=== PATIENT | female | born 1990 | race African-American/Black ===

== ENCOUNTER 2017-06-05 21:11 | Inpatient (IN) | payer MEDICARE ==
[~2017-06-05] VITALS: Ht 170.2 cm; Wt 73.9 kg
[~2017-06-05 21:11] MED LIST: ASCORBIC ACID; CLONAZEPAM1 MG PO; NORCO 5-325 TA1 EACH PO; iron; vitamin D
--- OUTSIDE RECORDS SUMMARY | 2017-06-05 21:14 | XMS REPORT ---
[facility] Address Unknown Phone Unavailable Care Team Providers Care Dial Marker Name Role Phone PAOLA CELESTIN Unavailable Unavailable Problems This patient has no known problems. Allergies, Adverse Reactions, Alerts This patient has no known allergies or adverse reactions. Medications This patient has no known medications. Encounters Start Date/Time End Date/Time Encounter Type Admission Type Attending [facility] Care Facility Care Department Encounter ID 2017-07-19 00:00:00 2017-07-19 00:00:00 Outpatient [facility] [id number] 2017-05-03 11:40:59 2017-05-03 11:40:59 Outpatient [facility] [id number] 2017-05-03 00:00:00 2017-05-03 00:00:00 Outpatient [facility] [id number] 2017-04-20 12:41:51 2017-04-20 12:41:51 Outpatient [facility] [id number] 2017-04-15 08:18:27 2017-04-15 08:18:27 Outpatient [facility] [id number] 2017-03-25 12:46:32 2017-03-25 12:46:32 Outpatient [facility] [id number] 2017-03-04 00:00:00 2017-03-04 00:00:00 Outpatient [facility] [id number] 2017-02-22 12:59:27 2017-02-22 12:59:27 Outpatient [facility] [id number] 2017-02-08 00:00:00 2017-02-08 00:00:00 Outpatient [facility] [id number] 2017-01-25 00:00:00 2017-01-25 00:00:00 Outpatient [facility] [id number] 2017-01-08 00:00:00 2017-01-08 00:00:00 Outpatient [facility] [id number] 2016-12-28 10:18:47 2016-12-28 10:18:47 Outpatient [facility] [id number] 2016-12-01 00:00:00 2016-12-01 00:00:00 Outpatient [facility] [id number] 2016-11-27 00:00:00 2016-11-27 00:00:00 Outpatient [facility] [id number] 2016-10-23 00:00:00 2016-10-23 00:00:00 Outpatient [facility] [id number] 2016-09-15 11:19:30 2016-09-15 11:19:30 Outpatient [facility] [id number] 2016-08-14 11:34:01 2016-08-14 11:34:01 Outpatient [facility] [id number] Results Test Description Test Time Test Comments Text Results Atomic Results Result Comments CHEST 2 VIEWS [place] [address] Patient Name: ALEXX CARRIZALES MR #: [id number] : 1990 Age/Sex: 26/F Req #: [id number] Adm Physician: Ordered by: PAOLA CELESTIN MD Report #: [id number] Location: ER Room/Bed: Procedure: [id number] DX/CHEST 2 VIEWS Exam Date: Exam Time: REPORT STATUS: Signed CHEST 2 VIEWS, Technique: CHEST 2 VIEWS Comparison: None Clinical history: S SLE ACHY ALL OVER, lupus DISCUSSION: Slightly enlarged cardiac silhouette. No consolidation or edema. No pleural effusion or pneumothorax. IMPRESSION: Slightly enlarged cardiac silhouette. Otherwise negative Signed by: Dr Lj Hanson MD on 01/21/2017 12:38 AM Dictated By: LJ HANSON MD Transcribed By: KATHY on 01/21/1737 COPY TO: PAOAL CELESTIN MD CT BRAIN WO [facility] [place] [address] Patient Name: ALEXX CARRIZALES MR #: [id number] : 1990 Age/Sex: 26/F Req #: [id number] Adm Physician: Ordered by: PAOLA CELESTIN MD Report #: [id number] Location: ER Room/Bed: Procedure: [id number] CT/CT BRAIN WO Exam Date: Exam Time: REPORT STATUS: Signed History: Lupus, migraine, fever. Comparison studies: None Technique: Axial images were obtained from the skull base to the vertex. Coronal and sagittal reconstructions obtained from the axial data. Findings: Scalp/skull: No abnormalities. No fractures, blastic or lytic lesions. Extra-axial spaces: No masses. No fluid collections. Brain sulci: Appropriate for age. Ventricles: Normal in size and configuration. No hydrocephalus. Parenchyma: No abnormal densities. No masses, hemorrhage, acute or chronic cortical vascular insults. Sellar/suprasellar region: No abnormalities Craniocervical junction: Patent foramen magnum. No Chiari one malformation. IMPRESSION: No abnormalities . Signed by: DR Brad Stevenson M.D. on 2016 12:16 AM Dictated By: BRAD SINGLETON MD Transcribed By: KATHY on 01/21/1715 COPY TO: PAOLA CELESTIN MD
[2017-06-05] MEDS ORDERED: ACETAMINOPHEN 325 MG TAB ONE (21:48)
[2017-06-05 22:53] LABS: EOSINOPHILS # (AUTO) 0.1 (0.0-0.4); EOSINOPHILS % 3.5 % (0.0-6.0); HEMATOCRIT 29.1 % (34.2-44.1); HEMOGLOBIN 9.7 g/dL (12.0-16.0); LYMPHOCYTES # (AUTO) 0.9 (1.0-3.2); LYMPHOCYTES % 24.9 % (18.0-39.1); MEAN CORPUSCULAR HEMOGLOBIN 30.6 pg (28-32); MEAN CORPUSCULAR HGB CONC 33.3 g/dL (31-35); MEAN CORPUSCULAR VOLUME 91.8 fL (81-99); MONOCYTES # (AUTO) 0.2 (0.2-0.8); MONOCYTES % 6.1 % (4.4-11.3); NEUTROPHILS # (AUTO) 2.2 (2.1-6.9); NEUTROPHILS % 65.2 % (38.7-80.0); PLATELET COUNT 270 x10e3/uL (140-360); RED BLOOD COUNT 3.17 x10e6/uL (3.6-5.1); RED CELL DISTRIBUTION WIDTH 10.8 % (11.7-14.4)
[2017-06-05 23:01] LABS: BILIRUBIN,URINE NEGATIVE (NEGATIVE); CLARITY,URINE CLEAR (CLEAR); COLOR,URINE YELLOW (YELLOW); KETONES,URINE NEGATIVE (NEGATIVE); LEUKOCYTE ESTERASE ,URINE TRACE (NEGATIVE); NITRITE,URINE NEGATIVE (NEGATIVE); PROTEIN,URINE DIPSTICK NEGATIVE (NEGATIVE); URINE UROBILINOGEN 0.2 mg/dL (0.2 - 1)
[2017-06-05 23:03] LABS: STREPTOCOCCUS GRP A ANTIGEN NEGATIVE (NEGATIVE)
[2017-06-05 23:11] LABS: INFLUENZAE A&B ANTIGEN (RAPID) NEGATIVE (NEGATIVE)
[2017-06-05 23:14] LABS: ALANINE AMINOTRANSFERASE 85 IU/L (0-55); ALBUMIN 3.2 g/dL (3.5-5.0); ALBUMIN/GLOBULIN RATIO 0.5 (0.8-2.0); ALKALINE PHOSPHATASE 162 IU/L (40-150); ANION GAP 11.8 mmol/L (8-16); BLOOD UREA NITROGEN 13 mg/dL (7-26); BUN/CREATININE RATIO 15 (6-25); CALCIUM 9.2 mg/dL (8.4-10.2); CARBON DIOXIDE 26 mmol/L (22-29); CHLORIDE 97 mmol/L (98-107); CREATINE KINASE 107 IU/L (29-168); CREATININE, SERUM 0.85 mg/dL (0.57-1.11); EST GLOMERULAR FILTRATION RATE > 60 ML/MIN (60-); GLUCOSE 91 mg/dL (74-118); POTASSIUM 3.8 mmol/L (3.5-5.1); SODIUM 131 mmol/L (136-145)
--- NOTE | 2017-06-05 23:14 | Diagnostic Imaging Report ---
CHEST SINGLE (PORTABLE), 06/05/2017 9:32 PM Technique: CHEST SINGLE (PORTABLE) Comparison: 01/20/2017 Clinical history: Chest pain Findings: See Impression Impression: 1. Moderately enlarged cardiac silhouette. Apparent interval enlargement from prior may be related to cardiomegaly, pericardial effusion or portable AP technique. Consider follow-up upright PA and lateral. 2. Central vascular congestion. Small left effusion and associated atelectasis. Signed by: Dr Danuta Hanson MD on 06/05/2017 11:11 PM
[2017-06-05 23:17] LABS: BACTERIA,URINE RARE /HPF; EPITHELIAL CELLS,URINE FEW /LPF; RBC,URINE 0-5 /HPF (0-5); WBC,URINE (MAN) 0-5 /HPF (0-5)
--- NOTE | 2017-06-06 02:30 | Diagnostic Imaging Report ---
EXAM: CT CHEST W DATE: 06/05/2017 11:52 PM INDICATION: Chest pain, shortness of breath, history of lupus COMPARISON: None TECHNIQUE: Multidetector CT scanning of the chest was performed. Coronal and sagittal multiplanar reformations were obtained. IV Contrast: 100 ml Isovue 370/300 FINDINGS: LUNGS AND PLEURA: Small left pleural effusion. Mild linear left basilar and right middle lobe opacity, favor atelectasis. HEART, MEDIASTINUM, VESSELS: Mild cardiomegaly with moderate pericardial effusion. The fluid measures greater than that of simple fluid, which may be artifactually increased related to streak from contrast in the heart. No evidence of acute pulmonary artery embolism. Multiple prominent mediastinal nodes for example 0.7 cm short axis in the anterior mediastinum and 0.9 cm in the subcarinal region. These are presumably reactive. UPPER ABDOMEN: Unremarkable. MUSCULOSKELETAL: No acute findings. IMPRESSION: 1. Cardiomegaly with moderate pericardial effusion, which can be seen with lupus/pericarditis. 2. Small left pleural effusion with atelectasis. 3. No acute pulmonary embolism. Signed by: Dr Danuta Hanson MD on 06/06/2017 2:26 AM
[2017-06-06] MEDS ORDERED: MORPHINE SULFATE 2 MG/ML SYR IV PRN (03:15)
[2017-06-06] MEDS ORDERED: ONDANSETRON HCL INJ 2 MG/ML VIAL IV PRN (03:15)
[2017-06-06] MEDS ORDERED: SODIUM CHLORIDE FLUSH 10 ML SYR INJ PRN (03:15)
[2017-06-06] MEDS ORDERED: ASPIRIN 81 MG CHEW TAB PO ONE (03:15)
[2017-06-06] MEDS ORDERED: SODIUM CHLORIDE 0.9% 50ML 50 ML ONE (04:07)
[2017-06-06] MEDS ORDERED: IOPAMIDOL 370 MG/ML 200 ML INFUS..BTL INJ ONE (04:07)
[2017-06-06] MEDS: ASPIRIN 81 MG ENTERIC COATED PO SCH (09:46)
[2017-06-06] MEDS ORDERED: ACETAMINOPHEN 325 MG TAB PO PRN (11:30)
[2017-06-06] MEDS ORDERED: CYMBALTA30 MG PO (12:00)
[2017-06-06] MEDS ORDERED: PLAQUENIL200 MG PO (12:00)
[2017-06-06] MEDS: SODIUM CHLORIDE 0.9% 1000ML 1,000 ML IV SCH ×2 (12:03→23:55)
[2017-06-06] MEDS ORDERED: HYDROCODONE/APAP 5MG-325MG TAB PO PRN (13:00)
[2017-06-06] MEDS ORDERED: MECLIZINE HCL 12.5 MG TAB PO SCH (13:15)
--- NOTE | 2017-06-06 14:30 | Diagnostic Imaging Report ---
Exam: Head CT without contrast History: Dizziness Comparison studies: Head CT 01/20/2017 Technique: Axial images were obtained from the skull base to the vertex. Coronal and sagittal images reconstructed from the axial data. Intravenous contrast: None Findings: Scalp: No abnormalities. Bones: No fractures, blastic or lytic lesions. Brain sulci: Appropriate for age. Ventricles: Normal in size and configuration. No hydrocephalus. Extra-axial spaces: No masses, no fluid collection. Parenchyma: No abnormal densities. No masses, acute hemorrhage, acute or chronic vascular insults. Sellar/suprasellar region: Partially CSF filled sella, a nonspecific finding which may be of no clinical significance in the absence of symptoms to suggest idiopathic intracranial hypertension or abnormalities referrable to the hypothalamic-pituitary axis. Craniocervical junction: Patent foramen magnum. No Chiari one malformation. IMPRESSION: 1. No acute abnormalities. 2. Incidental partially CSF filled sella, a nonspecific finding as described. 3. No changes from the previous head CT of 01/20/2017. Signed by: Dr. Michael Harrison M.D. on 06/06/2017 2:21 PM
[2017-06-06 14:44] LABS: CREATINE KINASE MB 0.6 ng/mL (0-5.0)
[2017-06-06 16:24] VITALS: BP 110/72
[2017-06-06 16:39] VITALS: BP 110/72
[2017-06-06 16:49] VITALS: BP 110/72
[2017-06-06] MEDS: HYDROXYCHLOROQUINE SULFATE 200 MG TAB PO SCH (17:47)
[2017-06-06] MEDS: CLONAZEPAM 1 MG TAB PO SCH (17:47)
[2017-06-06 20:00] VITALS: BP 106/76
[2017-06-06] MEDS ORDERED: METHYLPREDNISOLONE SOD SUCC 40 MG/ML VIAL IV SCH (21:00)
[2017-06-06 23:16] LABS: CREATINE KINASE 62 IU/L (29-168)
[2017-06-07] VITALS (10 sets, daily range): BP systolic 100–122; BP diastolic 56–76
--- NOTE | 2017-06-07 01:27 | Consultation ---
DATE OF CONSULTATION: PULMONARY CONSULTATION REASON FOR CONSULTATION: Pleuritic chest pain. HPI: Ms. Quintana is a 26-year-old female, who presented with pleuritic chest pain to the emergency room. Patient has history of SLE and she is on Plaquenil as an outpatient. The symptoms started few days ago and progressively getting worse. In the emergency room, patient underwent a CT of the chest to rule out PE. I have reviewed the images, not showing any evidence of pulmonary embolism; however, the pleura is thickened on the left side, unlikely that there is effusion. However, it is reported it is very small. She has small pericardial effusion as well. She has inflammation. Her lupus presentation is inflammation of small joints. She denies any nausea or vomiting, diarrhea, focal weakness. REVIEW OF SYSTEMS GENERAL: Denies any fever or chills. HEENT: Denies any head trauma. ENT, denies any earache nosebleed, throat pain. CVS: Patient has pleuritic chest pain. RESPIRATORY: Patient has a mild difficulty breathing when she takes deep breath. GI: Denies any nausea vomiting. REST OF THE REVIEW SYSTEMS: Negative except as in HPI. PAST MEDICAL HISTORY: SLE. PAST SURGICAL HISTORY: Surgery for adenitis. FAMILY HISTORY AND SOCIAL HISTORY: She does not smoke. Occasionally drinks. Works as a home school teacher. She has 2 children, lives with her children. PHYSICAL EXAM VITALS: Temperature 97.9, pulse of 106, blood pressure 110/72, respiratory rate of 18, O2 sat 100% on room air. SKIN: Warm and dry. GENERAL APPEARANCE: She is a young female, not in any obvious distress. She is awake and alert. Following commands. Responds to question appropriately. HEENT: Head atraumatic, normocephalic. Pupils reactive. NECK: Supple. CHEST: Poor respiratory effort because of pleuritic chest pain. Otherwise, clear to auscultation bilaterally. HEART: S1/S2 audible. ABDOMEN: Soft, nontender, nondistended. EXTREMITIES: No clubbing, cyanosis or edema. NEUROLOGIC: Awake and alert. Following command and no focal neurologic deficit. LABS: White count of 3.2, hemoglobin 9.7, platelets 270,000. Chemistry, sodium 135, potassium 3.8, chloride 97, BUN 13, creatinine 0.85. AST/ALT slightly elevated to [address] 85[address] Cardiac enzymes negative. CT of the chest, I reviewed the films, mild thickening of the pleura on the left side and very small pleural effusion on the left side. She has pericardial effusion. No pulmonary embolism. ASSESSMENT AND PLAN: Ms. Quintana is a 26-year-old female, who has systemic lupus erythematosus, currently presented with pleuritic chest pain, has small pericardial effusion and possible small pleural effusion. Findings suggestive of ascites, which can be part of systemic lupus erythematosus. PLAN 1. I will send off ESR and CRP. 2. Start the patient on low-dose steroids. 3. Oxygen as needed. Job#: [id number] CQ
[2017-06-07 07:14] LABS: BASOPHILS % 0.2 % (0.0-1.0); EOSINOPHILS % 0.2 % (0.0-6.0); HEMATOCRIT 30.1 % (34.2-44.1); HEMOGLOBIN 10.1 g/dL (12.0-16.0); LYMPHOCYTES # (AUTO) 0.6 (1.0-3.2); LYMPHOCYTES % 13.8 % (18.0-39.1); MEAN CORPUSCULAR HEMOGLOBIN 31.1 pg (28-32); MEAN CORPUSCULAR HGB CONC 33.6 g/dL (31-35); MEAN CORPUSCULAR VOLUME 92.6 fL (81-99); MONOCYTES # (AUTO) 0.1 (0.2-0.8); MONOCYTES % 2.4 % (4.4-11.3); NEUTROPHILS # (AUTO) 3.8 (2.1-6.9); PLATELET COUNT 274 x10e3/uL (140-360); RED BLOOD COUNT 3.25 x10e6/uL (3.6-5.1); RED CELL DISTRIBUTION WIDTH 10.9 % (11.7-14.4)
[2017-06-07 07:30] LABS: CHOL/HDL RATIO 3.7 (3.0-3.6)
[2017-06-07 07:39] LABS: ALANINE AMINOTRANSFERASE 77 IU/L (0-55); ALBUMIN/GLOBULIN RATIO 0.5 (0.8-2.0); ALKALINE PHOSPHATASE 154 IU/L (40-150); ANION GAP 11.1 mmol/L (8-16); BLOOD UREA NITROGEN 9 mg/dL (7-26); BUN/CREATININE RATIO 11 (6-25); CALCIUM 9.3 mg/dL (8.4-10.2); CARBON DIOXIDE 24 mmol/L (22-29); CHLORIDE 101 mmol/L (98-107); EST GLOMERULAR FILTRATION RATE > 60 ML/MIN (60-); GLUCOSE 172 mg/dL (74-118); POTASSIUM 4.1 mmol/L (3.5-5.1); SODIUM 132 mmol/L (136-145)
[2017-06-07 07:40] LABS: % IRON SATURATION 7 % (15-50); IRON 18 ug/dL (50-170); TOTAL IRON BINDING CAPACITY 260 ug/dL (261-478); TRANSFERRIN 186 mg/dL (180-382)
[2017-06-07] MEDS: DULOXETINE HCL 30 MG DELAYED RELEASE PO SCH (09:00)
[2017-06-07] MEDS: ASPIRIN 81 MG ENTERIC COATED PO SCH (09:44)
[2017-06-07] MEDS: METHYLPREDNISOLONE SOD SUCC 40 MG/ML VIAL IV SCH ×2 (09:44→17:38)
[2017-06-07] MEDS: CLONAZEPAM 1 MG TAB PO SCH ×2 (09:44→17:38)
[2017-06-07] MEDS: HYDROXYCHLOROQUINE SULFATE 200 MG TAB PO SCH ×2 (09:44→17:38)
[2017-06-07] MEDS: SODIUM CHLORIDE 0.9% 1000ML 1,000 ML IV SCH ×2 (10:58→21:22)
[2017-06-08] VITALS: BP 113/63
[2017-06-08] MEDS: METHYLPREDNISOLONE SOD SUCC 40 MG/ML VIAL IV SCH ×3 (00:32→17:50)
[2017-06-08 04:00] VITALS: BP 113/62
[2017-06-08 07:59] VITALS: BP 119/68
[2017-06-08 08:09] VITALS: BP 119/68
[2017-06-08] MEDS: DULOXETINE HCL 30 MG DELAYED RELEASE PO SCH (09:00)
[2017-06-08] MEDS: CLONAZEPAM 1 MG TAB PO SCH ×2 (09:45→17:50)
[2017-06-08] MEDS: HYDROXYCHLOROQUINE SULFATE 200 MG TAB PO SCH ×2 (09:45→17:50)
[2017-06-08] MEDS: ASPIRIN 81 MG ENTERIC COATED PO SCH (09:45)
[2017-06-08] MEDS: SODIUM CHLORIDE 0.9% 1000ML 1,000 ML IV SCH ×3 (10:59→23:45)
[2017-06-08 15:57] VITALS: BP 127/74
[2017-06-08 20:00] VITALS: BP 114/88
[2017-06-09 05:48] VITALS: BP 102/60
[2017-06-09 07:59] VITALS: BP 108/67
[2017-06-09 08:40] VITALS: BP 108/67
[2017-06-09] MEDS: METHYLPREDNISOLONE SOD SUCC 40 MG/ML VIAL IV SCH (08:43)
[2017-06-09] MEDS: CLONAZEPAM 1 MG TAB PO SCH (08:43)
[2017-06-09] MEDS: DULOXETINE HCL 30 MG DELAYED RELEASE PO SCH (08:43)
[2017-06-09] MEDS: ASPIRIN 81 MG ENTERIC COATED PO SCH (08:43)
[2017-06-09] MEDS: HYDROXYCHLOROQUINE SULFATE 200 MG TAB PO SCH (08:43)
[2017-06-09 12:10] VITALS: BP 107/67
[2017-06-09 14:54] LABS: BASOPHILS % 0.2 % (0.0-1.0); HEMATOCRIT 34.7 % (34.2-44.1); HEMOGLOBIN 11.7 g/dL (12.0-16.0); LYMPHOCYTES # (AUTO) 0.9 (1.0-3.2); MEAN CORPUSCULAR HEMOGLOBIN 30.8 pg (28-32); MEAN CORPUSCULAR HGB CONC 33.7 g/dL (31-35); MEAN CORPUSCULAR VOLUME 91.3 fL (81-99); MONOCYTES # (AUTO) 0.3 (0.2-0.8); MONOCYTES % 3.1 % (4.4-11.3); NEUTROPHILS # (AUTO) 8.3 (2.1-6.9); NEUTROPHILS % 87.2 % (38.7-80.0); PLATELET COUNT 359 x10e3/uL (140-360)
[2017-06-09 15:05] LABS: ANION GAP 12.2 mmol/L (8-16); BLOOD UREA NITROGEN 14 mg/dL (7-26); BUN/CREATININE RATIO 18 (6-25); CALCIUM 9.4 mg/dL (8.4-10.2); CARBON DIOXIDE 26 mmol/L (22-29); CHLORIDE 98 mmol/L (98-107); CREATININE, SERUM 0.79 mg/dL (0.57-1.11); EST GLOMERULAR FILTRATION RATE > 60 ML/MIN (60-); GLUCOSE 112 mg/dL (74-118); POTASSIUM 4.2 mmol/L (3.5-5.1); SODIUM 132 mmol/L (136-145)
[2017-06-09] MEDS ORDERED: PREDNISONE20 MG PO (15:20)
== END 2017-06-09 15:48 | disposition home or self-care (01) | DRG 545 ==
LOC: ER 21:11 → ERHOLD 06-06 03:14 → MED/SURG3 06-06 15:19 → OBSVTOIN 06-07 10:49
PROVIDERS: ADMIT Internal Medicine; ATTEND Internal Medicine
DX: M32.12 Pericarditis in systemic lupus erythematosus (principal); K65.8 Other peritonitis; F41.9 Anxiety disorder, unspecified; R00.0 Tachycardia, unspecified; Z28.82 Immunization not carried out because of caregiver refusal; Z79.899 Other long term (current) drug therapy
CPT/HCPCS: 36415; 70450; 71045; 71260; 80048; 80053; 80061; 81001; 81025; 82550; 82553; 83518; 83540; 84466; 84484; 85025; 85379; 85651; 86140; 87070; 87400; 93005; 93306; 96376; 99284; G0378; J2920; J7030; Q9967

== ENCOUNTER 2017-08-14 17:56 | Emergency (ER) | payer MEDICARE ==
[~2017-08-14] VITALS: Ht 170.2 cm; Wt 73.9 kg
[~2017-08-14 17:56] MED LIST changes: +CYMBALTA30 MG PO; +PLAQUENIL200 MG PO; +PREDNISONE20 MG PO
--- OUTSIDE RECORDS SUMMARY | 2017-08-14 17:59 | XMS REPORT | Continuity of Care Document ---
Author Author [facility] Address [address] [place] [address] Phone Unavailable Care Team Providers Care Assistant Manager Airside Operations Name Role Phone FILIBERTO PUGH MD PCP Insurance Providers Guarantor Alexx Carrizales Address [address] [facility] [address] [place] [address] Email [email or web address] Payer [facility] Policy Number [id number] Subscriber's Name Alexx Carrizales Relationship 18 Self / Same As Patient Effective Date 14 Payer Medicare A & B Policy Number [id number] Subscriber's Name Alexx Carrizales Relationship 18 Self / Same As Patient Effective Date 13 Advance Directives Directive Response Recorded Date/Time Does the patient have an advance directive? No 06/06/17 4:27pm If yes, is advance directive on file with [facility]? No 06/06/17 4:27pm If not on file with [facility] will patient provide a copy? No 06/06/17 4:27pm Do you have a Directive to Physician? No 06/05/17 9:07pm Do you have a Medical Power of Historical Records Administrator? No 06/05/17 9:07pm Do you have an out of hospital Do Not Resuscitate Order? No 06/05/17 9:07pm Do you have any special needs we should be aware of? No 06/05/17 9:07pm Do you have a support person here with you today? No 06/05/17 9:07pm Did patient receive Notice of Privacy Practices? Yes 06/05/17 9:07pm Did patient receive patient rights and responsibilities? Yes 06/05/17 9:07pm Problems Medical Problem Onset Date Status Abscess Unknown Acute Chest pain Unknown Pancytopenia 07/01/2015 Acute Pericardial effusion Unknown Thrombocythemia 07/01/2015 Acute Medications Current Home Medications Medication Dose Units Route Directions Days Qty Instructions Start Date Clonazepam 1 Mg Tablet 1 Mg Oral Twice A Day for Anxiety Duloxetine Hcl (Cymbalta) 30 Mg Capsule.dr 30 Mg Oral Daily 30 Hydrocodone Bit/Acetaminophen ([place] 5-325 Tablet) 1 Each Tablet 1 Each Oral Twice A Day as needed for Pain Hydroxychloroquine Sulfate (Plaquenil) 200 Mg Tab 200 Mg Oral Twice A Day 30 Tab Prednisone 20 Mg Tab 40 Mg Oral Daily 5 Days Social History Social History Problem Response Recorded Date/Time Onset Date Status Hx Psychiatric Problems Yes 06/06/2017 4:27pm Not Applicable Not Applicable Hx Eating Disorder No 06/06/2017 4:27pm Not Applicable Not Applicable Hx Substance Use Disorder No 06/06/2017 4:27pm Not Applicable Not Applicable Hx Depression Yes 06/06/2017 4:27pm Not Applicable Not Applicable Hx Alcohol Use No 06/06/2017 4:27pm Not Applicable Not Applicable Hx Substance Use Treatment No 06/06/2017 4:27pm Not Applicable Not Applicable Hx Physical Abuse No 06/06/2017 4:27pm Not Applicable Not Applicable Smoking Status Start Date Stop Date Never Smoker Hospital Discharge Instructions No hospital discharge instruction information available. Plan of Care Discharge Date 06/09/17 3:48pm Disposition HOME, SELF-CARE Instructions/Education Provided Systemic Lupus Erythematosus Prescriptions See Medication Section Additional Instructions/Education Regular diet Activities as tolerated Follow up with PCP in one week Functional Status Query Response Date Recorded Assistive Devices None June 06, 2017 4:39pm Ambulation Ability Independent June 06, 2017 4:39pm Toileting Ability Independent June 08, 2017 6:47pm Allergies, Adverse Reactions, Alerts Allergen Type Severity Reaction Status Last Updated Amoxicillin Allergy Unknown Active 06/04/16 Immunizations No immunization information available. Vital Signs Acute Vital Signs Vital Response Date/Time Temperature (Fahrenheit) 97.1 degrees F (97.6 - 99.5) 06/09/2017 12:10pm Pulse Pulse Rate (adult) 108 bpm (60 - 90) 06/09/2017 12:10pm Respiratory Rate 20 bpm (12 - 24) 06/09/2017 12:10pm Blood Pressure 107/67 mm Hg 06/09/2017 12:10pm Height 5 ft 7 in 06/05/2017 9:33pm Weight 163 lb 06/05/2017 9:33pm Body Mass Index 25.5 kg/m^2 06/07/2017 1:00am Results Laboratory Results Test Name Result Units Flags Reference Collection Date/Time Result Date/ Time Comments Prothrombin Time 14.2 seconds 11.9-14.5 01/20/2017 10:35pm 01/20/2017 10:58pm Prothromb Time International Ratio 1.05 01/20/2017 10:35pm 2016 10:58pm Oral Anticoagulant Therapy INR Values: 1. Low Intensity Therapy 1.5 - 2.0 2. Moderate Intensity Therapy 2.0 - 3.0 3. High Intensity Therapy(1) 2.5 - 3.5 4. High Intensity Therapy(2) 3.0 - 4.0 5. Panic Value INR > 5.0 Activated Partial Thromboplast Time 27.3 seconds 23.8-35.5 01/20/2017 10 :35pm 01/20/2017 10:58pm Magnesium Level 2.3 MG/DL H 1.3-2.1 01/20/2017 10:35pm 01/20/2017 11: 05pm White Blood Count 9.49 x10e3/uL # 4.8-10.8 06/09/2017 2:45pm 06/09/2017 2 :59pm Red Blood Count 3.80 x10e6/uL 3.6-5.1 06/09/2017 2:45pm 06/09/2017 2: 59pm Hemoglobin 11.7 g/dL L 12.0-16.0 06/09/2017 2:45pm 06/09/2017 2:59pm Hematocrit 34.7 % 34.2-44.1 06/09/2017 2:45pm 06/09/2017 2:59pm Mean Corpuscular Volume 91.3 fL 81-99 06/09/2017 2:45pm 06/09/2017 2: 59pm Mean Corpuscular Hemoglobin 30.8 pg 28-32 06/09/2017 2:45pm 06/09/2017 2:59pm Mean Corpuscular Hemoglobin Concent 33.7 g/dL 31-35 06/09/2017 2:45pm 06/09/2017 2:59pm Red Cell Distribution Width 11.0 % L 11.7-14.4 06/09/2017 2:45pm 2017 2:59pm Platelet Count 359 x10e3/uL 140-360 06/09/2017 2:45pm 06/09/2017 2: 59pm Neutrophils (%) (Auto) 87.2 % H 38.7-80.0 06/09/2017 2:45pm 06/09/2017 2 :59pm Lymphocytes (%) (Auto) 9.0 % L 18.0-39.1 06/09/2017 2:45pm 06/09/2017 2: 59pm Monocytes (%) (Auto) 3.1 % L 4.4-11.3 06/09/2017 2:45pm 06/09/2017 2: 59pm Eosinophils (%) (Auto) 0.0 % 0.0-6.0 06/09/2017 2:45pm 06/09/2017 2: 59pm Basophils (%) (Auto) 0.2 % 0.0-1.0 06/09/2017 2:45pm 06/09/2017 2:59pm IM GRANULOCYTES % 0.5 % 0.0-1.0 06/09/2017 2:45pm 06/09/2017 2:59pm Neutrophils # (Auto) 8.3 H 2.1-6.9 06/09/2017 2:45pm 06/09/2017 2: 59pm Lymphocytes # (Auto) 0.9 L 1.0-3.2 06/09/2017 2:45pm 06/09/2017 2: 59pm Monocytes # (Auto) 0.3 0.2-0.8 06/09/2017 2:45pm 06/09/2017 2:59pm Eosinophils # (Auto) 0.0 0.0-0.4 06/09/2017 2:45pm 06/09/2017 2:59pm Basophils # (Auto) 0.0 0.0-0.1 06/09/2017 2:45pm 06/09/2017 2:59pm Absolute Immature Granulocyte (auto 0.05 x10e3/uL 0-0.1 06/09/2017 2: 45pm 06/09/2017 2:59pm Erythrocyte Sedimentation Rate 115 mm/hr H 0-20 06/06/2017 10:50pm 06/07 12:13am D-Dimer Quantitative (PE/DVT) > 5000 ng/mL H 0-400 06/05/2017 9:45pm 11:49pm As with all in vitro diagnostic tests, the test results should be interpreted by the physician in conjunction with clinical findings and other test results. Test results are reported in NEW D-dimer units(ug/mLFEU). Urine Color YELLOW YELLOW 06/05/2017 10:45pm 06/05/2017 11:03pm Urine Clarity CLEAR CLEAR 06/05/2017 10:45pm 06/05/2017 11:03pm Urine Specific [place] 1.015 1.010-1.025 06/05/2017 10:45pm 2017 11:03pm Urine pH 6.5 5 - 7 06/05/2017 10:45pm 06/05/2017 11:03pm Urine Leukocyte Esterase TRACE H NEGATIVE 06/05/2017 10:45pm 2017 11:03pm Urine Nitrite NEGATIVE NEGATIVE 06/05/2017 10:45pm 06/05/2017 11: 03pm Urine Protein NEGATIVE NEGATIVE 06/05/2017 10:45pm 06/05/2017 11: 03pm Urine Glucose (UA) NEGATIVE NEGATIVE 06/05/2017 10:45pm 06/05/2017 11 :03pm Urine Ketones NEGATIVE NEGATIVE 06/05/2017 10:45pm 06/05/2017 11: 03pm Urine Urobilinogen 0.2 mg/dL 0.2 - 1 06/05/2017 10:45pm 06/05/2017 11: 03pm Urine Bilirubin NEGATIVE NEGATIVE 06/05/2017 10:45pm 06/05/2017 11: 03pm Urine Blood NEGATIVE NEGATIVE 06/05/2017 10:45pm 06/05/2017 11:03pm Urine WBC 0-5 /HPF 0-5 06/05/2017 10:45pm 06/05/2017 11:17pm Urine RBC 0-5 /HPF 0-5 06/05/2017 10:45pm 06/05/2017 11:17pm Urine Bacteria RARE /HPF NONE 06/05/2017 10:45pm 06/05/2017 11:17pm Urine Epithelial Cells FEW /LPF NONE 06/05/2017 10:45pm 06/05/2017 11: 17pm Urine Test NEGATIVE NEGATIVE 06/06/2017 12:25am 06/06/2017 12:29am Sodium Level 132 mmol/L L 136-145 06/09/2017 2:45pm 06/09/2017 3:07pm Potassium Level 4.2 mmol/L 3.5-5.1 06/09/2017 2:45pm 06/09/2017 3:07pm Chloride Level 98 mmol/L 98-107 06/09/2017 2:45pm 06/09/2017 3:07pm Influenza Virus Types A,B Antigen NEGATIVE NEGATIVE 06/05/2017 9:45pm 06/05/2017 11:11pm Carbon Dioxide Level 26 mmol/L 22-29 06/09/2017 2:45pm 06/09/2017 3: 07pm Anion Gap 12.2 mmol/L 8-16 06/09/2017 2:45pm 06/09/2017 3:07pm Blood Urea Nitrogen 14 mg/dL 7-06/09/2017 2:45pm 06/09/2017 3:07pm Creatinine 0.79 mg/dL 0.57-1.11 06/09/2017 2:45pm 06/09/2017 3:07pm BUN/Creatinine Ratio 18 6-25 06/09/2017 2:45pm 06/09/2017 3:07pm Estimat Glomerular Filtration Rate > 60 ML/MIN 60- 06/09/2017 2:45pm 3:07pm Ranges were taken from the National Kidney Disease Education Program and the National Kid[employer] Foundation literature. Reference ranges: 60 or greater: Normal 16-59 (for 3 consecutive months): Chronic kidney disease 15 or less: Kidney failure Glucose Level 112 mg/dL 74-118 06/09/2017 2:45pm 06/09/2017 3:07pm Calcium Level 9.4 mg/dL 8.4-10.2 06/09/2017 2:45pm 06/09/2017 3:07pm Iron Level 18 ug/dL L 50-170 06/07/2017 6:44am 06/07/2017 7:42am Total Iron Binding Capacity 260 ug/dL L 261-478 06/07/2017 6:44am 2017 7:42am Percent Iron Saturation 7 % L 15-50 06/07/2017 6:44am 06/07/2017 7:42am Transferrin 186 mg/dL 180-382 06/07/2017 6:44am 06/07/2017 7:42am Total Bilirubin 0.4 mg/dL 0.2-1.2 06/07/2017 6:44am 06/07/2017 7:42am Aspartate Amino Transf (AST/SGOT) 56 IU/L H 5-34 06/07/2017 6:44am 06/07 7:42am Alanine Aminotransferase (ALT/SGPT) 77 IU/L H 0-55 06/07/2017 6:44am 7:42am Total Protein 9.6 g/dL H 6.5-8.1 06/07/2017 6:44am 06/07/2017 7:42am Albumin 3.0 g/dL L 3.5-5.0 06/07/2017 6:44am 06/07/2017 7:42am Globulin 6.6 g/dL H 2.3-3.5 06/07/2017 6:44am 06/07/2017 7:42am Albumin/Globulin Ratio 0.5 L 0.8-2.0 06/07/2017 6:44am 06/07/2017 7: 42am Alkaline Phosphatase 154 IU/L H 40-150 06/07/2017 6:44am 06/07/2017 7: 42am Triglycerides Level 25 MG/DL 0-149 06/07/2017 6:44am 06/07/2017 7:31am Cholesterol Level 111 MD/DL 0-199 06/07/2017 6:44am 06/07/2017 7:31am Less than 200 mg/dL Low Risk 201 - 239 mg/dL Borderline Risk 240 mg/dl and greater High Risk LDL Cholesterol 76 MG/DL 60-130 06/07/2017 6:44am 06/07/2017 7:31am HDL Cholesterol 30 MG/DL L 40-60 06/07/2017 6:44am 06/07/2017 7:31am Cholesterol/HDL Ratio 3.7 H 3.0-3.6 06/07/2017 6:44am 06/07/2017 7: 31am Creatine Kinase 62 IU/L 29-168 06/06/2017 10:50pm 06/06/2017 11:28pm Creatine Kinase MB 0.40 ng/mL 0-5.0 06/06/2017 10:50pm 06/06/2017 11: 28pm Troponin I < 0.001 ng/mL 0-0.300 06/06/2017 10:50pm 06/06/2017 11:28pm C-Reactive Protein 50.5 mg/L H 0.0-4.9 06/06/2017 10:50pm 06/08/2017 3: 55pm Performed at: HD - [facility] [address] [id number] Potato Peeler: Demarcus Neal MD, Phone: [phone] Group A Streptococcus Screen NEGATIVE NEGATIVE 06/05/2017 9:45pm 11:03pm Procedures Procedure Status Date Provider(s) Computed tomography of brain without radiopaque contrast Active 01/20/17 PAOLA CELESTIN MD X-ray of chest, two views Active 01/21/17 PAOLA CELESTIN MD Computed tomography of chest with contrast Active 06/05/17 VALARIE WATERS MD Computed tomography of brain without radiopaque contrast Active 06/06/17 SYDNI PATEL MD Encounters Encounter Location Arrival/Admit Date Discharge/Depart Date Attending Provider Discharged Inpatient [facility] 06/07/17 10:49am 3:48pm FILIBERTO PUGH MD Departed Emergency Room [facility] 01/20/17 7:31pm 2:27am PAOLA CELESTIN MD
[2017-08-14 18:42] LABS: EOSINOPHILS # (AUTO) 0.1 (0.0-0.4); EOSINOPHILS % 1.4 % (0.0-6.0); HEMATOCRIT 36.3 % (34.2-44.1); HEMOGLOBIN 12.1 g/dL (12.0-16.0); LYMPHOCYTES # (AUTO) 0.9 (1.0-3.2); LYMPHOCYTES % 20.9 % (18.0-39.1); MEAN CORPUSCULAR HEMOGLOBIN 31.3 pg (28-32); MEAN CORPUSCULAR HGB CONC 33.3 g/dL (31-35); MEAN CORPUSCULAR VOLUME 93.8 fL (81-99); MONOCYTES # (AUTO) 0.2 (0.2-0.8); MONOCYTES % 5.1 % (4.4-11.3); NEUTROPHILS # (AUTO) 3.1 (2.1-6.9); NEUTROPHILS % 72.1 % (38.7-80.0); PLATELET COUNT 246 x10e3/uL (140-360); RED BLOOD COUNT 3.87 x10e6/uL (3.6-5.1); RED CELL DISTRIBUTION WIDTH 11.9 % (11.7-14.4)
[2017-08-14 18:52] LABS: INR 1.05; PROTHROMBIN TIME 12.9 seconds (11.9-14.5)
[2017-08-14 19:02] LABS: ALANINE AMINOTRANSFERASE 13 IU/L (0-55); ALBUMIN 3.9 g/dL (3.5-5.0); ALBUMIN/GLOBULIN RATIO 0.7 (0.8-2.0); ALKALINE PHOSPHATASE 76 IU/L (40-150); ANION GAP 11.8 mmol/L (8-16); BLOOD UREA NITROGEN 10 mg/dL (7-26); BUN/CREATININE RATIO 11 (6-25); CALCIUM 9.5 mg/dL (8.4-10.2); CARBON DIOXIDE 27 mmol/L (22-29); CHLORIDE 102 mmol/L (98-107); CREATININE, SERUM 0.89 mg/dL (0.57-1.11); EST GLOMERULAR FILTRATION RATE > 60 ML/MIN (60-); GLUCOSE 79 mg/dL (74-118); LIPASE 75 U/L (8-78); POTASSIUM 3.8 mmol/L (3.5-5.1); SODIUM 137 mmol/L (136-145)
== END 2017-08-14 18:45 | disposition left against medical advice (07) ==
LOC: ER 17:56
DX: R42 Dizziness and giddiness (principal)
CPT/HCPCS: 99284

== ENCOUNTER 2017-12-10 10:59 | Emergency (ER) | payer MEDICARE ==
[~2017-12-10] VITALS: Ht 170.2 cm; Wt 73.9 kg
== END 2017-12-10 12:37 | disposition left against medical advice (07) ==
LOC: ER 10:59
DX: N94.4 Primary dysmenorrhea (principal)
CPT/HCPCS: 81025

== ENCOUNTER 2021-05-04 10:33 | Emergency (ER) | payer MEDICARE ==
[~2021-05-04] VITALS: Ht 167.6 cm; Wt 81.6 kg
[2021-05-04] MEDS ORDERED: SODIUM CHLORIDE 0.9% 1000ML 1,000 ML IV STA (11:05)
[2021-05-04] MEDS ORDERED: METHYLPREDNISOLONE SOD SUCC 125 MG/2ML VIAL IV STA (11:05)
[2021-05-04 11:30] LABS: BASOPHILS % 0.3 % (0.0-1.0); EOSINOPHILS # (AUTO) 0.1 (0.0-0.4); EOSINOPHILS % 1.8 % (0.0-6.0); HEMATOCRIT 35.8 % (34.2-44.1); HEMOGLOBIN 11.4 g/dL (12.0-16.0); LYMPHOCYTES # (AUTO) 0.8 (1.0-3.2); LYMPHOCYTES % 24.2 % (18.0-39.1); MEAN CORPUSCULAR HEMOGLOBIN 30.6 pg (28-32); MEAN CORPUSCULAR HGB CONC 31.8 g/dL (31-35); MONOCYTES # (AUTO) 0.3 (0.2-0.8); MONOCYTES % 9.6 % (4.4-11.3); NEUTROPHILS # (AUTO) 2.1 (2.1-6.9); NEUTROPHILS % 63.8 % (38.7-80.0); PLATELET COUNT 252 x10e3/uL (140-360); RED BLOOD COUNT 3.73 x10e6/uL (3.6-5.1); RED CELL DISTRIBUTION WIDTH 11.3 % (11.7-14.4)
[2021-05-04 11:47] LABS: ALBUMIN 4.3 g/dL (3.5-5.0); ALBUMIN/GLOBULIN RATIO 0.8 (0.8-2.0); ANION GAP 14.1 mmol/L (8-16); CALCIUM 9.6 mg/dL (8.4-10.2); CREATININE, SERUM 0.81 mg/dL (0.57-1.11); POTASSIUM 4.1 mmol/L (3.5-5.1)
[2021-05-04 11:59] LABS: CLARITY,URINE SL CLOUDY (CLEAR); COLOR,URINE YELLOW (YELLOW); KETONES,URINE NEGATIVE (NEGATIVE); LEUKOCYTE ESTERASE ,URINE NEGATIVE (NEGATIVE); NITRITE,URINE NEGATIVE (NEGATIVE); PROTEIN,URINE DIPSTICK NEGATIVE (NEGATIVE); URINE UROBILINOGEN 0.2 mg/dL (0.2 - 1)
[2021-05-04 12:08] LABS: ERYTHROCYTE SEDIMENTATION RATE 67 mm/hr (0-20)
[2021-05-04 12:11] LABS: BACTERIA,URINE MODERATE /HPF; EPITHELIAL CELLS,URINE MANY /LPF; TRANSITIONAL EPI CELLS,URINE FEW
[2021-05-04 12:12] LABS: MUCUS,URINE MANY (RARE)
[2021-05-04] MEDS ORDERED: HYDROCODONE/APAP 10MG-325MG TAB PO ONE (12:30)
== END 2021-05-04 12:56 | disposition home or self-care (01) ==
LOC: ER 10:48
DX: M32.9 Systemic lupus erythematosus, unspecified (principal); F41.9 Anxiety disorder, unspecified; F31.9 Bipolar disorder, unspecified; Z20.822 Contact with and (suspected) exposure to COVID-19
CPT/HCPCS: 36415; 80053; 81001; 81025; 85025; 85651; 99283; J2930; J7030; U0002